=== PATIENT | male | born 1965 | race Caucasian/White ===

== ENCOUNTER 2021-10-17 05:39 | Emergency (ER) | payer BC ==
[~2021-10-17] VITALS: Ht 177.8 cm; Wt 78.5 kg
--- NOTE | 2021-10-17 05:59 | PHYS DOC ---
Adult General Chief Complaint Chief Complaint: CHEST PAIN [facility] HPI Patient is a 56 year old male who presents with chest pain. Patient had onset of symptoms around 530 this morning. Complains of sternal chest tightness. He also describes some numbness in the distal aspect of the right forearm. He felt the discomfort initially while at rest. It was not worse with activity. Since arriving to the ER, his symptoms have improved. No diaphoresis. No palpitations, lightheadedness. He has not been sick lately with viral illness, fever, cough. No prior history of similar symptoms to this in the past. He has no medical histories and does not take medications daily. No tobacco use and no family history of coronary artery disease. Review of Systems Review of Systems Constitutional: Denies fever or chills Eyes: Denies change in visual acuity HENT: Denies nasal congestion or sore throat Respiratory: Denies cough or shortness of breath Cardiovascular: No additional information not addressed in HPI GI: Denies abdominal pain, nausea, vomiting : Denies dysuria Musculoskeletal: Denies back pain or joint pain Integument: Denies rash or skin lesions Neurologic: Denies headache All other systems were reviewed and found to be within normal limits, except as documented in this note. Allergies Allergies Allergies Coded Allergies Type Severity Reaction Last Updated Verified No Known Drug Allergies 10/17/21 No Physical Exam Physical Exam Constitutional: Well developed, well nourished, no acute distress, non-toxic appearance HENT: Normocephalic, atraumatic, bilateral external ears normal, oropharynx moist Eyes: PERRLA, EOMI, conjunctiva normal Neck: Normal range of motion, no tenderness Cardiovascular:Heart rate regular rhythm, no murmur Lungs & Thorax: Bilateral breath sounds clear to auscultation Abdomen: Bowel sounds normal, soft, no tenderness Skin: Warm, dry, no erythema Back: Normal ROM Extremities: No tenderness, no edema Neurologic: Alert and oriented X 3, normal motor function Psychologic: Affect normal EKG EKG 06:00: Normal sinus rhythm. Poor quality EKG specifically in the precordial leads. That said, no evidence for ST depression or elevation is appreciated. Interpreted by ER physician. Heart rate 77. Radiology/Procedures Radiology/Procedures No acute findings seen on chest x-ray initially read by ER physician. Heart Score C/O Chest Pain: Yes HEART Score for Chest Pain: HEART Score for Chest Pain Response (Comments) Value History Slighlty/Non-Suspicious 0 ECG Normal 0 Age >45 - < 65 1 Risk Factors No Risk Factors 0 Troponin < Normal Limit 0 Total 1 Risk Factors: Risk Factors: DM, Current or recent (<one month) smoker, HTN, HLP, family history of CAD, obesity. Risk Scores: Risk Factors: DM, Current or recent (<one month) smoker, HTN, HLP, family history of CAD, obesity. Course & Med Decision Making Course & Med Decision Making Pertinent Labs and Imaging studies reviewed. (See chart for details) 06:15: Seen and examined. Symptoms largely improved with minimal discomfort at this time. Will give medication for pain relief. Standard work-up is ordered. 11:20: ED Summary; patient seen in the ER as documented above. He was kept in the ER for prolonged period of time in order to repeat EKGs and troponin. High- sensitivity troponin did not elevate after 4 hours and 6 hours from onset of symptoms. His EKGs also were unchanged. Stable for discharge home and he was pain-free after receiving a dose of Toradol in the ER. Recommended he follow-up with his primary care doctor. His heart score is 0-1 and he does not meet criteria for more urgent work-up or inpatient evaluation at this time. Strict return precautions discussed and he will come back to the ER if his symptoms recur or severely worsen. Dragon Disclaimer Dragon Disclaimer This electronic medical record was generated, in whole or in part, using a voice recognition dictation system. Departure Departure: Impression: Primary Impression: Other chest pain Disposition: HOME / SELF CARE / HOMELESS Condition: GOOD Referrals: WAYNE REED PAC (PCP) Patient Instructions: Chest Pain (Nonspecific), [id number] MARY KAUFFMAN DO Oct 17, 2021 05:59
[2021-10-17] MEDS ORDERED: ASPIRIN CHEWABLE 81 MG TABLET. ONE (06:25)
[2021-10-17 06:26] LABS: BASO # 0.1 x10^3/uL (0.0-0.2); BASO % 2 % (0-3); EOS # 0.2 x10^3/uL (0.0-0.7); EOS % 5 % (0-3); HEMATOCRIT 45.5 % (39.0-53.0); HEMOGLOBIN 15.5 g/dL (13.0-17.5); LYMPH # 1.7 x10^3/uL (1.0-4.8); LYMPH % 37 % (24-48); MEAN CORPUSCULAR HEMOGLOBIN 29 pg (25-35); MEAN CORPUSCULAR HGB CONC 34 g/dL (31-37); MEAN CORPUSCULAR VOLUME 86 fL (79-100); MONO # 0.4 x10^3/uL (0.0-1.1); MONO % 8 % (0-9); NEUT # 2.2 x10^3uL (1.8-7.7); NEUT % 48 % (31-73); PLATELET COUNT 235 x10^3/uL (140-400); RED BLOOD COUNT 5.27 x10^6/uL (4.30-5.70); RED CELL DISTRIBUTION WIDTH 13.1 % (11.5-14.5); WHITE BLOOD COUNT 4.6 x10^3/uL (4.0-11.0)
--- NOTE | 2021-10-17 06:35 | RAD ---
AP chest x-ray HISTORY: Chest pain. FINDINGS: Heart size normal. Mediastinal silhouette is normal. No pneumothorax, pulmonary opacities o r pleural effusions. Bones are unremarkable. IMPRESSION: No acute process. Electronically signed by: Horacio Rojas MD (10/17/2021 6:32 AM) [facility] [place]
[2021-10-17 06:37] LABS: CALCIUM 9.1 mg/dL (8.5-10.1); CREATININE 0.9 mg/dL (0.7-1.3); GFR 87.6; POTASSIUM 4.3 mmol/L (3.5-5.1)
[2021-10-17] MEDS ORDERED: MORPHINE SULFATE 4 MG/ML DISP.SYRIN. IV ONE (07:00)
[2021-10-17] MEDS ORDERED: KETOROLAC 30 MG/ML VIAL. ONE (08:40)
[2021-10-17] MEDS ORDERED: KETOROLAC 30 MG/ML VIAL. IVP ONE (08:45)
[2021-10-17 12:15] VITALS: BP 128/98
--- NOTE | 2021-10-17 21:09 | EKG ---
[address] [address] Test Date: 2021-10-17 Test Time: 05:53:40 Pat Name: MAYA RUSSELL Department: Room: Gender: M Manufacturing Helper: : 1965 Requested By: MARY KAUFFMAN Order Number: [id number] Reading MD: Measurements Intervals [place] Rate: 76 P: VA: QRS: 12 QRSD: 98 T: 7 QT: 370 QTc: 416 Interpretive Statements IRREGULAR RHYTHM, NO P-WAVE FOUND OTHERWISE NORMAL ECG RI6.01 No previous ECG available for comparison
--- NOTE | 2021-10-17 21:10 | EKG ---
[address] [address] Test Date: 2021-10-17 Test Time: 05:55:11 Pat Name: MAYA RUSSELL Department: Room: Gender: M Financial Rep: : 1965 Requested By: MARY KAUFFMAN Order Number: [id number] Reading MD: Measurements Intervals [place] Rate: 77 P: MA: QRS: 14 QRSD: 98 T: 11 QT: 392 QTc: 445 Interpretive Statements ACCELERATED JUNCTIONAL RHYTHM ABNORMAL ECG RI6.01 No previous ECG available for comparison
== END 2021-10-17 12:35 | disposition home or self-care (01) ==
LOC: ER 05:39
DX: R07.89 Other chest pain (principal); R20.0 Anesthesia of skin
CPT/HCPCS: 36415; 71045; 80048; 84484; 85025; 85379; 93005; 96374; 96375; 99285; J1885; J2270